=== PATIENT | male | born 1940 | race Caucasian/White ===

== ENCOUNTER 2023-05-02 06:22 | Day surgery (SDC) | payer OTHER, MEDICARE ==
[2023-04-29 12:29] LABS: BASOPHILS # (AUTO) 0.04 K/uL (0.00-0.20); BASOPHILS % (AUTO) 0.7 % (0.0-5.0); EOSINOPHILS # (AUTO) 0.03 K/uL (0.00-0.70); EOSINOPHILS % (AUTO) 0.5 % (0.0-8.0); HEMATOCRIT 43.3 % (42-54); IMMATURE GRANULOCYTE ABSOLUTE 0.02 K/uL (0-1); LYMPHOCYTES # (AUTO) 1.5 K/uL (1.0-4.8); LYMPHOCYTES % (AUTO) 26.7 % (21.0-51.0); MEAN CORPUSCULAR HEMOGLOBIN 30.4 pg (27.0-33.0); MEAN CORPUSCULAR HGB CONC 33.7 g/dL (32.0-36.0); MONOCYTES # (AUTO) 0.4 K/uL (0.1-1.0); MONOCYTES % (AUTO) 7.1 % (3.0-13.0); NEUTROPHILS # (AUTO) 3.6 K/uL (1.8-7.7); NEUTROPHILS % (AUTO) 64.6 % (40.0-77.0); PLATELET COUNT (AUTO) 230 K/uL (130-400); RED BLOOD CELL COUNT(AUTO) 4.81 MIL/uL (4.50-6.20); RED CELL DISTRIBUTION WIDTH 12.9 % (11.0-15.5); WHITE BLOOD COUNT (AUTO) 5.5 K/uL (4.8-10.8)
[2023-04-29 12:40] LABS: CREATININE 1.1 mg/dL (0.5-1.5); POTASSIUM 4.4 mmol/L (3.5-5.1)
[2023-04-29 12:43] LABS: INR < 0.93 (0.85-1.15); PROTHROMBIN TIME 10.6 SEC (9.6-11.6)
[2023-04-29 12:44] LABS: PARTIAL THROMBOPLASTIN TIME 27.5 SEC (26.3-35.5)
[2023-04-29 13:23] VITALS: BP 149/87; PULSE 67; RESP 14
[~2023-05-02] VITALS: Ht 175.3 cm; Wt 70.3 kg
[2023-05-02] VITALS (17 sets, daily range): BP systolic 126–159; BP diastolic 69–89; PULSE 71–82; RESP 14–18
[~2023-05-02 06:22] MED LIST: LOSA50TA64 PO; METO50TA18 PO
[2023-05-02] MEDS ORDERED: LACTATED RINGERS 1000ML 1,000 ML IV ONE (06:43)
[2023-05-02] MEDS ORDERED: FAMOTIDINE 20MG VIAL IV ONE (07:13)
[2023-05-02] MEDS ORDERED: PHENYLEPHRINE HCL 10 MG/ML 1ML VIAL IV ONE (07:16)
[2023-05-02] MEDS ORDERED: PROPOFOL 10 MG/ML 20ML VIAL IV ONE (07:19)
[2023-05-02] MEDS ORDERED: LIDOCAINE PF 100MG/5ML (2%) SYRINGE 5ML ONE (07:19)
[2023-05-02] MEDS ORDERED: SUCCINYLCHOLINE 200MG/10ML SYR ONE (07:19)
[2023-05-02] MEDS ORDERED: FENTANYL CITRATE PF 50 MCG/1 ML 2ML VIAL ONE (07:19)
[2023-05-02] MEDS ORDERED: ROCURONIUM 10MG/1ML SYR 10 MG/ML ML ONE (07:19)
[2023-05-02] MEDS ORDERED: GLYCOPYRROLATE 1 MG/5 ML SYRINGE ONE (07:19)
[2023-05-02] MEDS ORDERED: LIDOCAINE HCL/EPINEPHRINE 50 ML VIAL IJ ONE (07:21)
[2023-05-02] MEDS ORDERED: NEOMY SULF/BACITRAC ZN/POLY OINT 30GM TUBE TP ONE (07:27)
[2023-05-02] MEDS ORDERED: ONDANSETRON 4MG INJ ONE (08:15)
[2023-05-02] MEDS ORDERED: EPHEDRINE SULFATE 50 MG/ML AMPULE ONE (08:18)
[2023-05-02] MEDS ORDERED: NEOSTIGMINE METHYLSULFATE 1MG/ML IV ONE (08:51)
== END 2023-05-02 11:00 | disposition home or self-care (01) ==
LOC: DAH 06:22
PROVIDERS: ATTEND Otolaryngology Plastic Surgery within the Head & Neck
DX: C44.320 Squamous cell carcinoma of skin of unspecified parts of face (principal); I10 Essential (primary) hypertension; K21.9 Gastro-esophageal reflux disease without esophagitis; J44.9 Chronic obstructive pulmonary disease, unspecified; Z80.0 Family history of malignant neoplasm of digestive organs; Z87.891 Personal history of nicotine dependence; Z86.79 Personal history of other diseases of the circulatory system; Z79.01 Long term (current) use of anticoagulants; Z79.899 Other long term (current) drug therapy
CPT/HCPCS: 93005; 80048; 85025; 85610; 85730; 36415; 11642; 88305; A6260; A4663; A4606; J7120; J3490 ×3; J3010; J0330; J2001; J2704; J2405; J2710; J2371; A4215; A4223; A4222; A4221; A4600

== ENCOUNTER 2025-02-24 14:27 | Emergency (ER) | payer OTHER, MEDICARE ==
[~2025-02-24] VITALS: Ht 175.3 cm; Wt 68.0 kg
[2025-02-24 15:08] VITALS: TEMP 97.7
[2025-02-24 15:31] LABS: IMMATURE GRANULOCYTE ABSOLUTE 0.03 K/uL (0-1); NUCLEATED RED BLOOD CELLS 0.0 % (0.0-0.19); PLATELET COUNT (AUTO) 276 K/uL (130-400); RED BLOOD CELL COUNT(AUTO) 4.58 MIL/uL (4.50-6.20); RED CELL DISTRIBUTION WIDTH 12.8 % (11.0-15.5); WHITE BLOOD COUNT (AUTO) 10.7 K/uL (4.8-10.8)
[2025-02-24 15:57] LABS: CREATININE 0.9 mg/dL (0.5-1.3); GLOMERULAR FILTR. RATE CALC 85.0 mL/min (>90); GLUCOSE,RANDOM 98.0 mg/dL (70-105); SODIUM SERUM 138.0 mmol/L (136-145); UREA NITROGEN, BLOOD 13.0 mg/dL (7-18)
[2025-02-24 16:12] VITALS: BP 165/83; PULSE 81; RESP 20; O2SAT 97
[2025-02-24] MEDS: 0.9%NACL 1000ML 1,000 ML IV STA (16:30)
[2025-02-24 16:36] LABS: APPEARANCE,URINE CLEAR (CLEAR); GLUCOSE, URINE (UA) NEGATIVE (NEGATIVE); LEUKOCYTE ESTERASE ,URINE NEGATIVE Leu/uL (NEGATIVE); NITRATE,URINE NEGATIVE (NEGATIVE); OCCULT BLOOD,URINE SMALL (NEGATIVE)
--- NOTE | 2025-02-24 16:48 | ERN ---
ED Note History of Present Illness Stated Complaint: NAUSEA,VOMITING Chief Complaint: Nausea,Vomiting,Diarrhea Time Seen by MD: 14:28 Time Seen by Midlevel: 14:30 Dictation: 84-year-old male coming in complaining of nausea since yesterday. Patient has stage IV squamous cell in took two morphine p.o. that were prescribed by his oncologist, states after the morphine he began with the nausea and vomiting. Denies any abdominal pain, diarrhea, dysuria, fever, cough or congestion. Denies any chest pain or chest discomfort. Allergies: Coded Allergies: No Known Drug Allergies (Unverified Allergy, Unknown, 02/08/15) Home Meds Reported Medications Losartan Potassium (Losartan Potassium) 50 Mg Tablet, 50 MG PO HS, TAB 04/30/23 Metoprolol Tartrate (Metoprolol Tartrate) 50 Mg Tablet, 50 MG PO HS, TAB 04/30/23 Past Medical History Past Medical History: Other Additional Past Medical Hx: STAGE 4 CANCER - METASTIZED Surgical History: Other Surgical History Other: LEFT EYE SX, CARDIAC ABLATION Review of System Dictation Constitutional: Negative for fever,chills, and weight loss Eyes: Negative for injury, pain,redness, and discharge ENT: Negative for injury,pain or swelling Cardiovascular: Negative for chest pain, palpitations, and edema Respiratory: Negative for shortness of breath, cough, and wheezing, Abdomen/GI: Negative for abdominal pain, positive for nausea and vomiting Back: Negative for injury and pain : Negative for injury, bleeding and discharge MS/Extremity: Negative for injury and deformity Skin: Negative for rash, and discoloration Neuro: Negative for headache, weakness, numbness, tingling, and seizure Psych: Negative for suicide ideation, homicidal ideation, and hallucinations Review of Systems: was completed Initial Vital Sign VS Vital Signs Date Time Temp Pulse Resp B/P (MAP) Pulse Ox O2 Delivery O2 Flow Rate FiO2 02/24/25 14:28 97.9 85 18 178/99 98 02/24/25 15:08 Room Air* 0 21 Physical Exam Dictation General: awake, alert, NAD Head/Face: Normocephalic, atraumatic Eyes: PERRL, EOMI, vision at baseline ENT: oral cavity clear, TMs clear, no signs of infection Neck: Trachea midline, supple, no nuchal rigidity Cardiovascular: RRR, normal S1/S2, No MRGs, no JVD Respiratory: CTAB, no respiratory distress, No rales or wheezes Abdomen: Soft, non-tender, non-distended, normal bowel sounds, no guarding or rebound. Skin: Warm, dry, normal turgor, no rash MS/Extremity: Pulses equal, no cyanosis, neurovascular intact, FROM Neuro: COAx4, GCS 15, strength 5/5, CN 2-12 intact, normal cerebellar exam, normal gait, Psych: Normal behavior, mood, and affect normal Results (Laboratory/Radiology) Laboratory/Radiology Laboratory Tests Test 02/24/25 15:23 White Blood Count 10.7 K/uL (4.8-10.8) Red Blood Count 4.58 MIL/uL (4.50-6.20) Hemoglobin 13.7 g/dL (14.0-18.0) L Hematocrit 40.2 % (42-54) L Mean Corpuscular Volume 87.8 fL (79-99) Mean Corpuscular Hemoglobin 29.9 pg (27.0-33.0) Mean Corpuscular Hemoglobin Concent 34.1 g/dL (32.0-36.0) Red Cell Distribution Width 12.8 % (11.0-15.5) Platelet Count 276 K/uL (130-400) Mean Platelet Volume 9.4 fL (7.5-10.5) Immature Granulocyte % (Auto) 0.3 % (0-1) Neutrophils (%) (Auto) 88.2 % (40.0-77.0) H Lymphocytes (%) (Auto) 7.6 % (21.0-51.0) L Monocytes (%) (Auto) 3.5 % (3.0-13.0) Eosinophils (%) (Auto) 0.2 % (0.0-8.0) Basophils (%) (Auto) 0.2 % (0.0-5.0) Neutrophils # (Auto) 9.5 K/uL (1.8-7.7) H Lymphocytes # (Auto) 0.8 K/uL (1.0-4.8) L Monocytes # (Auto) 0.4 K/uL (0.1-1.0) Eosinophils # (Auto) 0.02 K/uL (0.00-0.70) Basophils # (Auto) 0.02 K/uL (0.00-0.20) Absolute Immature Granulocyte (auto 0.03 K/uL (0-1) Nucleated Red Blood Cells 0.0 % (0.0-0.19) White Cell Morphology Comment See comments Sodium Level 138 mmol/L (136-145) Potassium Level 3.8 mmol/L (3.5-5.1) Chloride Level 101 mmol/L (101-111) Carbon Dioxide Level 28 mmol/L (21-32) Blood Urea Nitrogen 13 mg/dL (7-18) Creatinine 0.9 mg/dL (0.5-1.3) Glomerular Filtration Rate Calc 85 mL/min (>90) Random Glucose 98 mg/dL (70-105) Total Calcium 8.8 mg/dL (8.5-10.1) Labs Reviewed?: Yes EKG Comment: EKGs did not 1532, sinus rhythm, no STEMI interpreted by ER MD. ED Course ED Course Orders Procedure Category Date Status Time Cbc With Differential LAB 02/24/25 Complete 15:10 Basic Metabolic Panel LAB 02/24/25 Complete 15:10 0.9%Nacl 1000ml (Ns PHA 02/24/25 Complete 1000ml) 15:10 Ondansetron 4mg Inj PHA 02/24/25 Complete (Zofran 4mg Inj) 15:10 12 Lead Ekg Tracing- EKG 02/24/25 Logged Technical 15:11 *Nursing CPOE 02/24/25 Transmitted Communication: 15:59 Urinalysis Profile LAB 02/24/25 In Process 16:29 Current Medications Medications (Trade) Dose Ordered Sig/Francisco Route PRN Reason Start Time Stop Time Status Last Admin Dose Admin Ondansetron HCl (zoFRAN 4MG INJ) 4 mg ONCE STAT IVP 02/24/25 15:10 02/24/25 15:12 DC 02/24/25 16:30 Sodium Chloride 1,000 ml @ 1,000 mls/hr Q1H STAT IV 02/24/25 15:10 02/24/25 16:09 DC 02/24/25 16:30 Vital Signs Date Time Temp Pulse Resp B/P (MAP) Pulse Ox O2 Delivery O2 Flow Rate FiO2 02/24/25 16:12 81 20 165/83 97 Room Air* 0 21 02/24/25 15:08 97.7 79 20 165/86 99 Room Air* 0 21 02/24/25 14:28 97.9 85 18 178/99 98 Medical Decision Making MDM MDM: 84-year-old male coming in complaining of nausea since yesterday. Patient has stage IV squamous cell in took two morphine p.o. that were prescribed by his oncologist, states after the morphine he began with the nausea and vomiting. Denies any abdominal pain, diarrhea, dysuria, fever, cough or congestion. Denies any chest pain or chest discomfort. All blood work is unremarkable. Patient received fluids and Zofran. P.o. challenge with mcfp, patient was able to eat a mcfp without any episodes of vomiting. Patient states his PCP already sent him a prescription for antiemetics today which they will shredder picker after the being seen in the ER. Patient will be discharged to follow up with his PCP. Educated to return if he has any worsening symptoms. Differential diagnosis: Medication side effects, GENESIS, dehydration, Rationale: Tests considered and ordered secondary to shared decision making include: Previous outside records reviewed: Old ER visits. Risk of complication and/or morbidity or mortality of patient management: None Medications-Per medication reconciliation Need for hospitalization: Patient does not meet criteria for hospitalization. Need for emergency major/minor surgery: No There are no social concerns with this patient. Prescription drug management Prescriptions will include symptomatic care Patient's prior external medical records from other ER visits were reviewed by me as indicated. Prior testing and results from previous visits were reviewed. Prior tests were taken into account with medical decision making and resource utilization, independent historian/historians were used to obtain complete medical history. I independently interpreted the test that were performed, results were reviewed by me and considered findings on radiology if ordered. Medical management and examination interpretation discussions were had by me with other qualified healthcare professionals as indicated for the patient's care. DX & DISP Disposition: Discharge Departure Impression: Primary Impression: Nausea & vomiting Additional Impression: Medication side effect Condition: Stable Additional Instructions: Make sure to shredder picker the prescription for your nausea medication. If you are unable to keep anything down despite taking your nausea medication please return back to the emergency room. Referrals: LIZ DENIS MD (PCP) Time of Disposition: 16:47 I have reviewed the case, and I agree with, Diagnosis and Plan NOBLE DE LUNA NP Feb 24, 2025 16:48
[2025-02-24 16:49] LABS: ADD UA MICROSCOPIC YES
--- NOTE | 2025-02-24 17:29 | EKG ---
[facility] Test Date: 2025-02-24 Test Time: 15:32:21 Pat Name: KINGS SIMMONS Department: ED Room: Gender: M [employer]: [id number] : 1940 Requested By: NOBLE DE LUNA Order Number: [id number] Reading MD: Bernardo Garvey Measurements Intervals [place] Rate: 81 P: 50 MA: 149 QRS: 80 QRSD: 92 T: 11 QT: 391 QTc: 453 Interpretive Statements Sinus rhythm Compared to ECG 04/29/2023 13:12:39 No significant changes Electronically Signed On 02-26-2025 02:08:17 CDT by Bernardo Garvey Please click the below link to view image of tracing.
== END 2025-02-24 17:08 | disposition home or self-care (01) ==
LOC: EDH 14:27
DX: R11.2 Nausea with vomiting, unspecified (principal); T40.2X5A Adverse effect of other opioids, initial encounter; Y92.89 Other specified places as the place of occurrence of the external cause
CPT/HCPCS: 99284; 96374; 96361; 80048; 85025; 81001; 36415; 93005; J7030; J2405